=== PATIENT | female | born 1945 | race Native Hawaiian/Other Pacific Islander ===

== ENCOUNTER 2017-03-07 09:05 | Outpatient (CLI) | payer OTHER, MEDICARE ==
[2017-03-07 09:35] LABS: PLATELET COUNT 230 K/uL (152-353)
[2017-03-07 10:41] LABS: POTASSIUM 4.4 mmol/L (3.6-5.2)
== END 2017-03-07 19:19 | disposition home or self-care (01) ==
LOC: LABW 09:05
PROVIDERS: Internal Medicine
DX: I12.9 Hypertensive chronic kidney disease with stage 1 through stage 4 chronic kidney disease, or unspecified chronic kidney disease (principal); N18.3 Chronic kidney disease, stage 3 (moderate); N25.0 Renal osteodystrophy; R73.09 Other abnormal glucose
CPT/HCPCS: 36415; 80053; 80061; 81000; 82306; 82570; 83036; 83970; 84100; 84155; 85027

== ENCOUNTER 2017-09-12 07:52 | Outpatient (CLI) | payer OTHER, MEDICARE ==
[2017-09-12 08:32] LABS: PLATELET COUNT 252 K/uL (152-353)
[2017-09-12 08:38] LABS: POTASSIUM 3.9 mmol/L (3.6-5.2)
== END 2017-09-12 19:02 | disposition home or self-care (01) ==
LOC: LABW 07:52
PROVIDERS: Internal Medicine
DX: N18.3 Chronic kidney disease, stage 3 (moderate) (principal); E11.9 Type 2 diabetes mellitus without complications
CPT/HCPCS: 36415; 80053; 81000; 83036; 83970; 84100; 85027

== ENCOUNTER 2018-03-15 07:46 | Outpatient (CLI) | payer OTHER, MEDICARE ==
[2018-03-15 08:44] LABS: PLATELET COUNT 269 K/uL (152-353)
[2018-03-15 09:17] LABS: POTASSIUM 4.2 mmol/L (3.6-5.2)
== END 2018-03-15 19:56 | disposition home or self-care (01) ==
LOC: LABW 07:46
PROVIDERS: Internal Medicine Cardiovascular Disease
DX: I12.9 Hypertensive chronic kidney disease with stage 1 through stage 4 chronic kidney disease, or unspecified chronic kidney disease (principal); N18.3 Chronic kidney disease, stage 3 (moderate); E11.9 Type 2 diabetes mellitus without complications; N25.0 Renal osteodystrophy; R82.99 Other abnormal findings in urine
CPT/HCPCS: 36415; 80053; 80061; 81000; 82570; 83036; 83970; 84100; 84155; 85027; 87077; 87086; 87088; 87186

== ENCOUNTER 2018-03-17 08:54 | Outpatient (CLI) | payer OTHER, MEDICARE | END 2018-03-17 19:23 | disposition home or self-care (01) | LOC: LAB 08:54 | DX: R19.7 Diarrhea, unspecified (principal) | CPT/HCPCS: 82272; 87015; 87045; 87205; 87324; 87328; 87329; 87449; 87899 ==

== ENCOUNTER 2018-07-24 12:37 | Outpatient (CLI) | payer OTHER, MEDICARE | END 2018-07-24 19:59 | disposition home or self-care (01) | LOC: RAD 12:37 | DX: M25.512 Pain in left shoulder (principal) ==

== ENCOUNTER 2018-09-26 09:11 | Outpatient (CLI) | payer OTHER, MEDICARE ==
[2018-09-26 09:44] LABS: PLATELET COUNT 234 K/uL (152-353)
[2018-09-26 09:58] LABS: POTASSIUM 4.7 mmol/L (3.6-5.2)
== END 2018-09-26 21:22 | disposition home or self-care (01) ==
LOC: LABW 09:11
PROVIDERS: Internal Medicine
DX: I12.9 Hypertensive chronic kidney disease with stage 1 through stage 4 chronic kidney disease, or unspecified chronic kidney disease (principal); N25.0 Renal osteodystrophy
CPT/HCPCS: 36415; 80053; 81000; 82570; 84100; 84155; 85027

== ENCOUNTER 2019-02-12 10:03 | Outpatient (CLI) | payer OTHER, MEDICARE | END 2019-02-12 19:35 | disposition home or self-care (01) | LOC: LABW 10:03 | DX: M54.2 Cervicalgia (principal); M54.12 Radiculopathy, cervical region; M54.11 Radiculopathy, occipito-atlanto-axial region; R23.3 Spontaneous ecchymoses | CPT/HCPCS: 85002 ==

== ENCOUNTER 2019-02-28 07:53 | Outpatient (CLI) | payer OTHER, MEDICARE | END 2019-02-28 22:21 | disposition home or self-care (01) | LOC: LAB 07:53 | DX: R05 Cough (principal) | CPT/HCPCS: 87070; 87205 ==

== ENCOUNTER 2019-03-28 08:33 | Outpatient (CLI) | payer OTHER, MEDICARE ==
[2019-03-28 08:58] LABS: PLATELET COUNT 248 K/uL (152-353)
[2019-03-28 09:32] LABS: POTASSIUM 4.4 mmol/L (3.6-5.2)
== END 2019-03-28 23:28 | disposition home or self-care (01) ==
LOC: LABW 08:33
PROVIDERS: Internal Medicine
DX: I12.9 Hypertensive chronic kidney disease with stage 1 through stage 4 chronic kidney disease, or unspecified chronic kidney disease (principal); N25.0 Renal osteodystrophy
CPT/HCPCS: 36415; 80053; 81000; 82570; 83970; 84100; 84155; 85027

== ENCOUNTER 2019-11-13 09:04 | Outpatient (CLI) | payer OTHER, MEDICARE ==
[2019-11-13 09:45] LABS: PLATELET COUNT 238 K/uL (152-353)
[2019-11-13 09:53] LABS: POTASSIUM 3.9 mmol/L (3.6-5.2)
== END 2019-11-13 20:09 | disposition home or self-care (01) ==
LOC: LABW 09:04
PROVIDERS: Internal Medicine
DX: I12.9 Hypertensive chronic kidney disease with stage 1 through stage 4 chronic kidney disease, or unspecified chronic kidney disease (principal); N25.81 Secondary hyperparathyroidism of renal origin
CPT/HCPCS: 36415; 80053; 81000; 82310; 82570; 83970; 84100; 84155; 85027

== ENCOUNTER 2020-05-16 10:13 | Outpatient (CLI) | payer OTHER, MEDICARE ==
[2020-05-16 11:06] LABS: PLATELET COUNT 224 K/uL (152-353)
== END 2020-05-16 19:40 | disposition home or self-care (01) ==
LOC: LABW 10:13
PROVIDERS: ATTEND Internal Medicine
DX: E11.22 Type 2 diabetes mellitus with diabetic chronic kidney disease (principal); I12.9 Hypertensive chronic kidney disease with stage 1 through stage 4 chronic kidney disease, or unspecified chronic kidney disease; N25.81 Secondary hyperparathyroidism of renal origin; Q61.02 Congenital multiple renal cysts
CPT/HCPCS: 36415; 80069; 81000; 82570; 83970; 84155; 85027

== ENCOUNTER 2020-08-25 13:46 | Outpatient (CLI) | payer OTHER, MEDICARE ==
[2020-08-25 14:25] LABS: PLATELET COUNT 227 K/uL (152-353)
[2020-08-25 14:34] LABS: POTASSIUM 4.2 mmol/L (3.6-5.2)
== END 2020-08-25 23:30 | disposition home or self-care (01) ==
LOC: LABW 13:46
PROVIDERS: Internal Medicine
DX: E11.22 Type 2 diabetes mellitus with diabetic chronic kidney disease (principal); I12.9 Hypertensive chronic kidney disease with stage 1 through stage 4 chronic kidney disease, or unspecified chronic kidney disease
CPT/HCPCS: 80053; 81000; 82570; 83970; 84100; 84155; 85027

== ENCOUNTER 2021-04-21 08:24 | Outpatient (CLI) | payer OTHER, MEDICARE | END 2021-04-21 23:59 | disposition home or self-care (01) | LOC: US 08:24 | PROVIDERS: ATTEND Internal Medicine | DX: R79.89 Other specified abnormal findings of blood chemistry (principal); E03.8 Other specified hypothyroidism ==

== ENCOUNTER 2021-05-13 07:49 | Outpatient (CLI) | payer OTHER, MEDICARE ==
[~2021-05-13] VITALS: Ht 157.5 cm; Wt 86.6 kg
== END 2021-05-13 19:24 | disposition home or self-care (01) ==
LOC: DIABINF 07:49
PROVIDERS: ATTEND Internal Medicine Endocrinology, Diabetes & Metabolism
DX: E11.65 Type 2 diabetes mellitus with hyperglycemia (principal); I10 Essential (primary) hypertension; K21.9 Gastro-esophageal reflux disease without esophagitis; E04.1 Nontoxic single thyroid nodule; E78.2 Mixed hyperlipidemia; H26.8 Other specified cataract; N18.9 Chronic kidney disease, unspecified; M54.5 Low back pain; R53.81 Other malaise; I83.93 Asymptomatic varicose veins of bilateral lower extremities; L98.8 Other specified disorders of the skin and subcutaneous tissue
CPT/HCPCS: 82948; 96365; 96366; 96521; J1815; J1817

== ENCOUNTER 2021-05-14 07:49 | Outpatient (CLI) | payer OTHER, MEDICARE ==
[~2021-05-14] VITALS: Ht 157.5 cm; Wt 86.6 kg
== END 2021-05-14 20:59 | disposition home or self-care (01) ==
LOC: DIABINF 07:49
PROVIDERS: ATTEND Internal Medicine Endocrinology, Diabetes & Metabolism
DX: E11.65 Type 2 diabetes mellitus with hyperglycemia (principal); I10 Essential (primary) hypertension; K21.9 Gastro-esophageal reflux disease without esophagitis; E04.1 Nontoxic single thyroid nodule; E78.2 Mixed hyperlipidemia; H26.8 Other specified cataract; N18.9 Chronic kidney disease, unspecified; M54.5 Low back pain; I83.893 Varicose veins of bilateral lower extremities with other complications
CPT/HCPCS: 82948; 96365; 96366; 96521; J1815; J1817

== ENCOUNTER 2021-05-20 08:06 | Outpatient (CLI) | payer OTHER, MEDICARE ==
[~2021-05-20] VITALS: Ht 157.5 cm; Wt 86.6 kg
== END 2021-05-20 23:26 | disposition home or self-care (01) ==
LOC: DIABINF 08:06
PROVIDERS: ATTEND Internal Medicine Endocrinology, Diabetes & Metabolism
DX: E11.65 Type 2 diabetes mellitus with hyperglycemia (principal); I10 Essential (primary) hypertension; K21.9 Gastro-esophageal reflux disease without esophagitis; E04.1 Nontoxic single thyroid nodule; E78.2 Mixed hyperlipidemia; H26.9 Unspecified cataract; N18.9 Chronic kidney disease, unspecified; M54.5 Low back pain; R53.81 Other malaise; I83.93 Asymptomatic varicose veins of bilateral lower extremities; L98.8 Other specified disorders of the skin and subcutaneous tissue
CPT/HCPCS: 82948; 96365; 96366; 96521; J1815; J1817

== ENCOUNTER 2021-05-21 07:55 | Outpatient (CLI) | payer OTHER, MEDICARE ==
[~2021-05-21] VITALS: Ht 157.5 cm; Wt 86.6 kg
== END 2021-05-21 22:01 | disposition home or self-care (01) ==
LOC: DIABINF 07:55
PROVIDERS: ATTEND Internal Medicine Endocrinology, Diabetes & Metabolism
DX: E11.65 Type 2 diabetes mellitus with hyperglycemia (principal); I10 Essential (primary) hypertension; K21.9 Gastro-esophageal reflux disease without esophagitis; E04.1 Nontoxic single thyroid nodule; E78.2 Mixed hyperlipidemia; H26.9 Unspecified cataract; N18.9 Chronic kidney disease, unspecified; M54.5 Low back pain; R53.81 Other malaise; I83.93 Asymptomatic varicose veins of bilateral lower extremities; L98.8 Other specified disorders of the skin and subcutaneous tissue
CPT/HCPCS: 82948; 96365; 96366; 96521; J1815; J1817

== ENCOUNTER 2021-05-27 07:59 | Outpatient (CLI) | payer OTHER, MEDICARE ==
[~2021-05-27] VITALS: Ht 157.5 cm; Wt 86.6 kg
== END 2021-05-27 15:13 | disposition home or self-care (01) ==
LOC: DIABINF 07:59
PROVIDERS: ATTEND Internal Medicine Endocrinology, Diabetes & Metabolism
DX: E11.65 Type 2 diabetes mellitus with hyperglycemia (principal); I10 Essential (primary) hypertension; K21.9 Gastro-esophageal reflux disease without esophagitis; E04.1 Nontoxic single thyroid nodule; E78.2 Mixed hyperlipidemia; H26.9 Unspecified cataract; N18.9 Chronic kidney disease, unspecified; M54.5 Low back pain; R53.81 Other malaise; I83.93 Asymptomatic varicose veins of bilateral lower extremities; L98.8 Other specified disorders of the skin and subcutaneous tissue
CPT/HCPCS: 82948; 96365; 96366; 96521; J1815; J1817

== ENCOUNTER 2021-05-28 07:44 | Outpatient (CLI) | payer OTHER, MEDICARE ==
[~2021-05-28] VITALS: Ht 157.5 cm; Wt 86.6 kg
== END 2021-05-28 20:17 | disposition home or self-care (01) ==
LOC: DIABINF 07:44
PROVIDERS: ATTEND Internal Medicine Endocrinology, Diabetes & Metabolism
DX: E11.65 Type 2 diabetes mellitus with hyperglycemia (principal); I10 Essential (primary) hypertension; K21.9 Gastro-esophageal reflux disease without esophagitis; E04.1 Nontoxic single thyroid nodule; E78.2 Mixed hyperlipidemia; H26.8 Other specified cataract; N18.9 Chronic kidney disease, unspecified; M54.5 Low back pain; R53.81 Other malaise; I83.93 Asymptomatic varicose veins of bilateral lower extremities; L98.8 Other specified disorders of the skin and subcutaneous tissue
CPT/HCPCS: 82948; 96365; 96366; 96521; J1815; J1817

== ENCOUNTER 2021-06-03 07:58 | Outpatient (CLI) | payer OTHER, MEDICARE ==
[~2021-06-03] VITALS: Ht 157.5 cm; Wt 86.6 kg
== END 2021-06-03 18:54 | disposition home or self-care (01) ==
LOC: DIABINF 07:58
PROVIDERS: ATTEND Internal Medicine Endocrinology, Diabetes & Metabolism
DX: E11.65 Type 2 diabetes mellitus with hyperglycemia (principal); I10 Essential (primary) hypertension; K21.9 Gastro-esophageal reflux disease without esophagitis; E04.1 Nontoxic single thyroid nodule; E78.2 Mixed hyperlipidemia; H26.8 Other specified cataract; N18.9 Chronic kidney disease, unspecified; M54.5 Low back pain; R53.81 Other malaise; I83.93 Asymptomatic varicose veins of bilateral lower extremities; L98.8 Other specified disorders of the skin and subcutaneous tissue
CPT/HCPCS: 82948; 96365; 96366; 96521; J1815; J1817

== ENCOUNTER 2021-06-04 08:40 | Outpatient (CLI) | payer OTHER, MEDICARE ==
[2021-06-04 09:11] LABS: PLATELET COUNT 196 K/uL (152-353)
== END 2021-06-04 22:34 | disposition home or self-care (01) ==
LOC: LABW 08:40
PROVIDERS: ATTEND Internal Medicine
DX: E11.22 Type 2 diabetes mellitus with diabetic chronic kidney disease (principal); E66.01 Morbid (severe) obesity due to excess calories; I12.9 Hypertensive chronic kidney disease with stage 1 through stage 4 chronic kidney disease, or unspecified chronic kidney disease; N18.30 Chronic kidney disease, stage 3 unspecified; N25.81 Secondary hyperparathyroidism of renal origin
CPT/HCPCS: 36415; 80069; 81000; 82570; 83036; 83970; 84155; 85027

== ENCOUNTER 2021-06-10 08:15 | Outpatient (CLI) | payer OTHER, MEDICARE ==
[~2021-06-10] VITALS: Ht 157.5 cm; Wt 86.6 kg
== END 2021-06-10 21:07 | disposition home or self-care (01) ==
LOC: DIABINF 08:15
PROVIDERS: ATTEND Internal Medicine Endocrinology, Diabetes & Metabolism
DX: E11.65 Type 2 diabetes mellitus with hyperglycemia (principal); I10 Essential (primary) hypertension; K21.9 Gastro-esophageal reflux disease without esophagitis; E04.1 Nontoxic single thyroid nodule; E78.2 Mixed hyperlipidemia; H26.8 Other specified cataract; N18.9 Chronic kidney disease, unspecified; M54.5 Low back pain; R53.81 Other malaise; I83.93 Asymptomatic varicose veins of bilateral lower extremities; L98.8 Other specified disorders of the skin and subcutaneous tissue
CPT/HCPCS: 82948; 96365; 96366; 96521; J1815; J1817

== ENCOUNTER 2021-06-17 08:00 | Outpatient (CLI) | payer OTHER, MEDICARE | END 2021-06-17 19:03 | disposition home or self-care (01) | LOC: DIABINF 08:00 | PROVIDERS: ATTEND Internal Medicine Endocrinology, Diabetes & Metabolism | DX: E11.65 Type 2 diabetes mellitus with hyperglycemia (principal); I10 Essential (primary) hypertension; K21.9 Gastro-esophageal reflux disease without esophagitis; E04.1 Nontoxic single thyroid nodule; E78.2 Mixed hyperlipidemia; H26.9 Unspecified cataract; N18.9 Chronic kidney disease, unspecified; M54.5 Low back pain; R53.81 Other malaise; I83.93 Asymptomatic varicose veins of bilateral lower extremities; L98.8 Other specified disorders of the skin and subcutaneous tissue | CPT/HCPCS: 82948; 96365; 96366; 96521; J1817 ==

== ENCOUNTER 2021-06-24 07:49 | Outpatient (CLI) | payer OTHER, MEDICARE ==
[~2021-06-24] VITALS: Ht 157.5 cm; Wt 86.6 kg
== END 2021-06-24 23:00 | disposition home or self-care (01) ==
LOC: DIABINF 07:49
PROVIDERS: ATTEND Internal Medicine Endocrinology, Diabetes & Metabolism
DX: E11.65 Type 2 diabetes mellitus with hyperglycemia (principal); I10 Essential (primary) hypertension; K21.9 Gastro-esophageal reflux disease without esophagitis; E04.1 Nontoxic single thyroid nodule; E78.2 Mixed hyperlipidemia; H26.8 Other specified cataract; N18.9 Chronic kidney disease, unspecified; M54.5 Low back pain; R53.81 Other malaise; I83.93 Asymptomatic varicose veins of bilateral lower extremities; L98.8 Other specified disorders of the skin and subcutaneous tissue
CPT/HCPCS: 82948; 96365; 96366; 96521; J1815; J1817

== ENCOUNTER 2021-10-26 13:40 | Outpatient (CLI) | payer OTHER, MEDICARE ==
[2021-10-26 14:01] LABS: PLATELET COUNT 220 K/uL (152-353)
[2021-10-26 14:10] LABS: POTASSIUM 4.7 mmol/L (3.6-5.2)
== END 2021-10-26 18:54 | disposition home or self-care (01) ==
LOC: LABW 13:40
PROVIDERS: ATTEND Internal Medicine
DX: I12.9 Hypertensive chronic kidney disease with stage 1 through stage 4 chronic kidney disease, or unspecified chronic kidney disease (principal); N18.30 Chronic kidney disease, stage 3 unspecified
CPT/HCPCS: 36415; 80069; 81000; 82310; 82570; 83970; 84155; 85027

== ENCOUNTER 2022-06-07 11:05 | Outpatient (CLI) | payer OTHER, MEDICARE | END 2022-06-07 19:33 | disposition home or self-care (01) | LOC: RAD 11:05 | PROVIDERS: ATTEND Physician Assistant | DX: M54.59 Other low back pain (principal) ==

== ENCOUNTER 2022-08-13 09:42 | Outpatient (CLI) | payer OTHER, MEDICARE ==
[2022-08-13 10:54] LABS: POTASSIUM 4.2 mmol/L (3.6-5.2)
[2022-08-13 11:03] LABS: PLATELET COUNT 244 K/uL (152-353)
== END 2022-08-13 18:51 | disposition home or self-care (01) ==
LOC: LABW 09:42
PROVIDERS: ATTEND Internal Medicine
DX: E11.22 Type 2 diabetes mellitus with diabetic chronic kidney disease (principal); N18.32 Chronic kidney disease, stage 3b; R53.83 Other fatigue; E53.8 Deficiency of other specified B group vitamins
CPT/HCPCS: 36415; 80053; 81002; 82043; 82330; 82570; 82607; 82728; 82746; 83036; 83540; 83550; 83735; 83970; 84100; 84156; 84439; 84443; 85027; 85652; 86038

== ENCOUNTER 2022-10-05 13:16 | Outpatient (CLI) | payer OTHER, MEDICARE | END 2022-10-05 19:21 | disposition home or self-care (01) | LOC: MRI 13:16 | PROVIDERS: ATTEND Physician Assistant | DX: M54.59 Other low back pain (principal) ==

== ENCOUNTER 2022-12-27 09:24 | Outpatient (CLI) | payer OTHER, MEDICARE ==
[2022-12-27 10:04] LABS: PLATELET COUNT 230 K/uL (152-353)
[2022-12-27 10:20] LABS: POTASSIUM 4.2 mmol/L (3.6-5.2)
== END 2022-12-27 20:42 | disposition home or self-care (01) ==
LOC: LABW 09:24
PROVIDERS: ATTEND Internal Medicine
DX: E11.22 Type 2 diabetes mellitus with diabetic chronic kidney disease (principal); N18.32 Chronic kidney disease, stage 3b; R53.83 Other fatigue
CPT/HCPCS: 80053; 81002; 82043; 82330; 82570; 82607; 82728; 82746; 83036; 83540; 83550; 83735; 83970; 84100; 84156; 84439; 84443; 85027; 85652; 86038

== ENCOUNTER 2023-05-04 10:06 | Outpatient (CLI) | payer OTHER, MEDICARE ==
[2023-05-04 10:40] LABS: PLATELET COUNT 232 K/uL (152-353)
== END 2023-05-04 20:25 | disposition home or self-care (01) ==
LOC: LABW 10:06
PROVIDERS: ATTEND Internal Medicine
DX: E11.22 Type 2 diabetes mellitus with diabetic chronic kidney disease (principal); N18.32 Chronic kidney disease, stage 3b; R53.83 Other fatigue
CPT/HCPCS: 36415; 80053; 81000; 82043; 82330; 82570; 82607; 82728; 82746; 83036; 83540; 83550; 83735; 83970; 84100; 84156; 84439; 84443; 85027; 85652; 86038; 87088

== ENCOUNTER 2023-06-20 09:22 | Outpatient (CLI) | payer OTHER, MEDICARE | END 2023-06-20 23:01 | disposition home or self-care (01) | LOC: MRI 09:22 | PROVIDERS: ATTEND Internal Medicine | DX: R42 Dizziness and giddiness (principal); R51.9 Headache, unspecified; H53.8 Other visual disturbances; N18.30 Chronic kidney disease, stage 3 unspecified; E11.9 Type 2 diabetes mellitus without complications ==

== ENCOUNTER 2023-06-29 14:23 | Outpatient (CLI) | payer OTHER, MEDICARE | END 2023-06-29 19:08 | disposition home or self-care (01) | LOC: MRI 14:23 | PROVIDERS: ATTEND Internal Medicine | DX: R42 Dizziness and giddiness (principal); R51.9 Headache, unspecified; H53.8 Other visual disturbances ==